=== PATIENT | female | born 1940 | race Caucasian/White ===

== ENCOUNTER 2020-07-31 00:19 | Inpatient (IN) | payer MEDICARE, OTHER ==
[~2020-07-31] VITALS: Ht 165.1 cm; Wt 94.9 kg
[2020-07-31] MEDS ORDERED: LASIX 40 MG TAB40 MG PO (02:34)
[2020-07-31] MEDS ORDERED: MELOXICAM7.5 MG PO (02:34)
[2020-07-31] MEDS ORDERED: LANSOPRAZOLE30 MG PO (02:34)
[2020-07-31] MEDS ORDERED: LISINOPRIL40 MG PO (02:35)
[2020-07-31] MEDS ORDERED: TRADJENTA5 MG PO (02:35)
[2020-07-31] MEDS ORDERED: GLUCOTROL5 MG PO (02:35)
[2020-07-31] MEDS ORDERED: ZOCOR 40 MG TAB40 MG PO (02:36)
[2020-07-31] MEDS ORDERED: METOPROLOL SUCC25 MG PO (02:37)
[2020-07-31] MEDS ORDERED: WARFARIN SODIU2.5 MG PO (02:39)
[2020-07-31] MEDS ORDERED: NORVASC5 MG PO (02:44)
[2020-07-31] MEDS ORDERED: PROTONIX 40 MG40 M1 PO (02:45)
[2020-07-31] MEDS ORDERED: ADULT LOW DOSE81 MG PO (02:46)
[2020-07-31 13:34] LABS: BUN/CREATININE RATIO 40 (0-10)
[2020-08-01 03:43] LABS: HEMOGLOBIN 10.7 gm/dl (12.3-15.3); RED BLOOD COUNT 4.08 M/UL (4.00-5.10); WHITE BLOOD COUNT 8.2 K/UL (4.5-11.0)
[2020-08-01 04:14] LABS: BUN/CREATININE RATIO 39 (0-10)
[2020-08-02 02:44] LABS: HEMOGLOBIN 10.8 gm/dl (12.3-15.3); RED BLOOD COUNT 4.19 M/UL (4.00-5.10)
[2020-08-02 03:37] LABS: BUN/CREATININE RATIO 31 (0-10)
[2020-08-03 03:49] LABS: HEMOGLOBIN 11.5 gm/dl (12.3-15.3); RED BLOOD COUNT 4.4 M/UL (4.00-5.10); WHITE BLOOD COUNT 7.3 K/UL (4.5-11.0)
[2020-08-03 04:25] LABS: BUN/CREATININE RATIO 25 (0-10)
[2020-08-03] MEDS ORDERED: CEFUROXIME500 MG PO (08:55)
[2020-08-03] MEDS ORDERED: METOPROLOL SUCC50 MG PO (08:55)
[2020-08-03] MEDS ORDERED: DIGOXIN125 MCG PO (08:55)
[2020-08-03] MEDS ORDERED: PERCOCET 5/325 T1 EA PO (08:55)
[2020-08-03] MEDS ORDERED: PERCOCET 5-3251 EACH PO (09:38)
--- NOTE | 2020-08-03 12:06 | NUR ---
PATIENT BACK IN AFIB. PROVIDER NOTIFIED VIA PHONE CALL.
== END 2020-08-03 14:56 | disposition home or self-care (01) | DRG 308 ==
LOC: PROG CARE 01:12
PROVIDERS: Internal Medicine; Physician Assistant; ADMIT Internal Medicine
DX: I47.2 Ventricular tachycardia (principal); J18.9 Pneumonia, unspecified organism; E11.9 Type 2 diabetes mellitus without complications; I83.93 Asymptomatic varicose veins of bilateral lower extremities; I25.10 Atherosclerotic heart disease of native coronary artery without angina pectoris; I50.9 Heart failure, unspecified; J44.9 Chronic obstructive pulmonary disease, unspecified; Z90.710 Acquired absence of both cervix and uterus; Z90.49 Acquired absence of other specified parts of digestive tract; Z91.81 History of falling; M54.89 Other dorsalgia; I48.19 Other persistent atrial fibrillation; I11.0 Hypertensive heart disease with heart failure; Z79.01 Long term (current) use of anticoagulants; Z79.84 Long term (current) use of oral hypoglycemic drugs; Z79.82 Long term (current) use of aspirin; R55 Syncope and collapse; I20.9 Angina pectoris, unspecified; I49.3 Ventricular premature depolarization; R19.7 Diarrhea, unspecified; Z20.822 Contact with and (suspected) exposure to COVID-19; I36.1 Nonrheumatic tricuspid (valve) insufficiency; I27.20 Pulmonary hypertension, unspecified; R91.8 Other nonspecific abnormal finding of lung field
CPT/HCPCS: ECHO; 36415; 71045; 80048; 80053; 82550; 82553; 82962; 83735; 84439; 84443; 84484; 85025; 85610; 85730; 87635; 93005; 93306; 93880; 97116-GP-CQ; 97162; 97165; 97530; 97530-GP-CQ; 97535; J0696; J1160; J1650

== ENCOUNTER 2020-08-06 12:43 | Inpatient (IN) | payer MEDICARE, OTHER ==
[~2020-08-06] VITALS: Ht 165.1 cm; Wt 93.9 kg
[~2020-08-06 12:43] MED LIST: ADULT LOW DOSE81 MG PO; CEFUROXIME500 MG PO; DIGOXIN125 MCG PO; GLUCOTROL5 MG PO; LANSOPRAZOLE30 MG PO; LASIX 40 MG TAB40 MG PO; LISINOPRIL40 MG PO; MELOXICAM7.5 MG PO; METOPROLOL SUCC25 MG PO; METOPROLOL SUCC50 MG PO; NORVASC5 MG PO; PERCOCET 5-3251 EACH PO; PERCOCET 5/325 T1 EA PO; PROTONIX 40 MG40 M1 PO; TRADJENTA5 MG PO; WARFARIN SODIU2.5 MG PO; ZOCOR 40 MG TAB40 MG PO
[2020-08-06 14:17] LABS: RED BLOOD COUNT 4.56 M/UL (4.00-5.10); WHITE BLOOD COUNT 17.3 K/UL (4.5-11.0)
[2020-08-07 02:50] LABS: HEMOGLOBIN 10.6 gm/dl (12.3-15.3); RED BLOOD COUNT 4.11 M/UL (4.00-5.10); WHITE BLOOD COUNT 14.9 K/UL (4.5-11.0)
[2020-08-07 03:03] LABS: BUN/CREATININE RATIO 46 (0-10)
--- NOTE | 2020-08-07 04:02 | NUR ---
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 WILL COLLECT NEXT AVAILABLE SAMPLE.
[2020-08-08 06:10] LABS: HEMOGLOBIN 10.9 gm/dl (12.3-15.3); RED BLOOD COUNT 4.1 M/UL (4.00-5.10)
[2020-08-08 06:12] LABS: WHITE BLOOD COUNT 9.4 K/UL (4.5-11.0)
[2020-08-08 06:29] LABS: BUN/CREATININE RATIO 37 (0-10)
[2020-08-09] MEDS ORDERED: ELIQUIS 2.5 MG2.5 MG PO (11:23)
== END 2020-08-09 15:06 | disposition home or self-care (01) | DRG 393 ==
LOC: ER1 12:43 → CDU 20:58 → M/S 20:58
PROVIDERS: Emergency Medicine; Internal Medicine; ADMIT Internal Medicine
DX: K55.059 Acute (reversible) ischemia of intestine, part and extent unspecified (principal); I21.A1 Myocardial infarction type 2; I48.20 Chronic atrial fibrillation, unspecified; N17.9 Acute kidney failure, unspecified; K55.1 Chronic vascular disorders of intestine; K90.0 Celiac disease; E11.9 Type 2 diabetes mellitus without complications; I27.20 Pulmonary hypertension, unspecified; J44.9 Chronic obstructive pulmonary disease, unspecified; Z20.822 Contact with and (suspected) exposure to COVID-19; I95.9 Hypotension, unspecified; M19.90 Unspecified osteoarthritis, unspecified site; E66.01 Morbid (severe) obesity due to excess calories; K21.9 Gastro-esophageal reflux disease without esophagitis; E78.5 Hyperlipidemia, unspecified; M51.36 Other intervertebral disc degeneration, lumbar region; I07.1 Rheumatic tricuspid insufficiency; Z79.899 Other long term (current) drug therapy; Z90.49 Acquired absence of other specified parts of digestive tract; Z90.710 Acquired absence of both cervix and uterus; Z79.01 Long term (current) use of anticoagulants; Z79.82 Long term (current) use of aspirin; I70.1 Atherosclerosis of renal artery; T46.0X5A Adverse effect of cardiac-stimulant glycosides and drugs of similar action, initial encounter; I34.0 Nonrheumatic mitral (valve) insufficiency; R79.1 Abnormal coagulation profile
CPT/HCPCS: 36415; 71045; 80048; 80053; 80162; 81001; 82550; 82553; 82962; 83605; 83874; 83880; 84484; 85025; 85610; 85730; 93005; 96374; 99285; J1644; J7030; Q9967; U0002